=== PATIENT | female | born 1965 | race Caucasian/White ===

== ENCOUNTER 2018-10-22 13:03 | Inpatient (IN) ==
[~2018-10-22 13:03] MED LIST: amLODIPine 5 MG TABLET PO SCH
[2018-10-22] MEDS ORDERED: IOPAMIDOL 100 ML BOTTLE IV ONE (13:04)
--- NOTE | 2018-10-22 13:28 | Emergency Department Note ---
Nausea/Vomiting/Diarrhea HPI - General Chief complaint: Nausea/Vomiting/Diarrhea Stated complaint: nuasea, vomiting, altered mental status Time Seen by Provider: 10/22/18 13:13 Source: patient Mode of arrival: ambulatory Limitations: no limitations - History of Present Illness HPI Narrative: 53-year-old female in ED with friend present. Patient began having diarrhea and vomiting this morning along with decreased appetite over the last day. Friend advises patient had altered mental status last evening and patient advised she does not recall any of those events. Patient does work outside in the heat but she does drink adequate water. Patient provides vague answers and keeps it to yes and no answers or shrugs her shoulders. Patient advised that she has had no bladder changes, no chest pain, does have epigastric pain that is sharp and cramping, no headaches. She does smoke cigarettes daily and has since teenager, drinks alcohol rarely, does smoke marijuana daily. Sister advises patient did recently return from a kayak trip within the last week. MD complaint: nausea, vomiting, diarrhea, abdominal pain Onset (ago): hour(s) (12) Associated Abdominal Pain: Yes (epigastric) Location of pain: epigastric Consistency: constant Improves with: none Associated symptoms: Reports: loss of appetite, malaise, nausea/vomiting. Denies: myalgias, chest pain, cough, diaphoresis, fever/chills, headaches, rash, dysuria, shortness of breath, syncope, weakness - Related Data Home Medications Medication Instructions Recorded Confirmed Carisoprodol [Soma] 350 mg PO TIDP PRN 12/01/15 10/22/18 Gabapentin [Neurontin] 800 mg PO TID 12/01/15 10/22/18 morphine [Ms Contin] 60 mg PO BID 12/01/15 10/22/18 ALPRAZolam [Xanax] 0.5 mg PO DAILYP PRN 01/21/18 10/22/18 HYDROcodone/ACETAMINOPHEN [[place] 1 tab PO PRN PRN 10/22/18 10/22/18 10-325 Tablet] Previous Rx's Medication Instructions Recorded Albuterol Sulfate [Ventolin] 1 puff INH Q4HP PRN #1 inhaler 01/24/18 Levofloxacin [Levaquin] 750 mg PO DAILY #3 tab 01/24/18 predniSONE [Prednisone] 40 mg PO [facility] #10 tab 01/24/18 Allergies Allergy/AdvReac Type Severity Reaction Status Date / Time Penicillins Allergy Severe Anaphylaxis Verified 10/22/18 13:08 Sulfa (Sulfonamide AdvReac Mild Nausea/Vomi Verified 10/22/18 13:08 Antibiotics) ting Review of Systems All systems ED: reviewed and negative except as stated. Past Medical History - Past Medical History [facility] Narrative: All Active Problems (Last Reviewed 01/23/18 @ 03:49 by Shira Bermudez) Urinary tract infection (Acute) Pneumonia (Acute) COPD (chronic obstructive pulmonary disease) (Acute) Bilateral pneumonia (Acute) Medical history: Reports: COPD, other (back pain) Surgical history ED: Reports: appendectomy, hysterectomy - Social History smoking status: Current every day smoker Alcohol use: Reports: Occasionally Drug use: Reports: none Physical Exam Limitations: altered mental status General appearance: alert, in no apparent distress Head: atraumatic, normocephalic, normal inspection Eye: Present: normal appearance, PERRL, EOMI. Absent: conjunctival injection ENT: normal oropharynx, mucous membranes moist, TM's normal bilaterally, normal external ear exam Neck: Present: normal inspection, trachea midline. Absent: tenderness, lymphadenopathy Chest: Present: normal inspection, symmetric chest wall rise. Absent: tenderness Respiratory: Present: normal lung sounds bilaterally. Absent: respiratory distress, rales/crackles, wheezes Cardiovascular: Present: regular rate, normal rhythm. Absent: systolic murmur, diastolic murmur Abdominal: Present: soft, tenderness (mild diffuse), normal bowel sounds. Absent: distention, guarding, rebound, rigidity Extremities: Present: normal inspection, normal capillary refill. Absent: pedal edema Back: Present: normal inspection Neurological: Present: alert, normal gait. Absent: oriented X3 Patient oriented to: Present: person Cranial nerves: EOM function (II, III, IV, ): Normal, facial sensation (V): Normal, facial palsy (VII): Normal, gag reflex (IX): Normal, spinal accessory function (XI): Normal, tongue deviation (XII): Normal Cerebellar function: finger to nose: Normal Cerebellar function: normal gait Motor strength - LUE: 5/5 Motor strength - RUE: 5/5 Motor strength - LLE: 5/5 Motor strength - RLE: 5/5 Sensory exam upper extremity: Normal: light touch, pin prick, temperature Sensory exam lower extremity: Normal: light touch, pin prick, temperature Coma Scale Eye Opening: Spontaneous Coma Scale Motor Response: Obeys Commands Coma Scale Verbal Response: None (unknown if patient understands as she answers yes/no and the answers do not always correlate) Coma Scale Total: 11 Psychiatric: Present: normal affect, normal mood Skin: Present: warm, dry, intact, normal color. Absent: cool, diaphoretic Course Vital Signs Temperature 98.8 F 10/22/18 13:05 Pulse Rate 64 10/22/18 13:05 Respiratory Rate 17 10/22/18 13:05 Blood Pressure 182/103 10/22/18 13:05 Pulse Oximetry (%) 100 10/22/18 13:05 Temperature 99.5 F H 10/23/18 07:11 Pulse Rate 68 10/23/18 04:00 Respiratory Rate 20 10/23/18 07:11 Blood Pressure 156/86 10/23/18 07:11 Pulse Oximetry (%) 93 10/23/18 07:11 Nausea/Vomiting/Diarrhea - [facility] Narrative Medical decision making narrative: Patient presents with altered mental status and is only able to answer yes/no questions. She is also unable to write her answers. Sister advises she believes this started yesterday evening around dinner time, patient just was not acting per her normal. Pt follows commands, she is afebrile, her WBC returned 16.0, gran % 91.9 and gran # 14.7, lactic acid 2.9, BUN 25, urine unremarkable, UDS with marijuana positive. Head CT, CTA head/neck all Unremarkable. Patient with negative C-diff. Sister later advised patient has had episodes like this in the past- where she is unresponsive in her bed for days at a time and does not eat/drink, then awakes and laughs a lot but does not really talk. Sister attributed it to her drug use in the past and one time was diagnosed with a viral syndrome. consulted and advised to continue to find source of infection. Pt does not take prednisone-this was an old prescription. phoned and advised CT chest negative. CT abdomen without obstruction, lots of liquid stool, vasculitis, possible ischemic bowel could be source of infection, other differentials: parasites, lupus. Blood cultures and stool culture obtained. 1G Vancomycin started. Patient received 2 Liters Normal Saline. Consulted who advised to provide patient with hydralazine and attempts to decrease blood pressure, add Flagyl and cefepime to her antibiotic regimen and he accepted patient for further work-up. - Lab Data Lab results reviewed: Yes I reviewed the patient's lab results. Result diagrams: 10/23/18 04:08 10/23/18 04:08 Lab Results 10/22/18 10/22/18 10/22/18 Range/Units 13:33 13:33 13:33 WBC 16.0 H (4.5-11.0) K/mcL RBC 4.76 (4.00-5.20) M/mcL Hgb 15.6 H (12.0-15.0) g/dL Hct 48.1 H (36.0-48.0) % POC Hct 50.0 H (36.0-48.0) % MCV 101.1 H (80.0-100.0) fL MCH 32.7 (26.0-34.0) pg MCHC 32.3 (31.0-36.0) g/dL RDW 12.8 (11.5-14.5) % Plt Count 385 (140-440) K/mcL MPV 8.1 (7.4-10.4) fL Gran % 91.9 H (38.0-78.0) % Lymph % (Auto) 5.2 L (15.5-49.0) % [place] % (Auto) 2.4 (1.0-12.0) % Eos % (Auto) 0 (0.0-7.0) % Baso % (Auto) 0.5 (0.0-2.0) % Gran # 14.7 H (1.8-8.0) K/mcL Lymph # (Auto) 0.8 L (1.5-4.8) K/mcL [place] # (Auto) 0.4 (0.1-0.9) K/mcL Eos # (Auto) 0 (0.0-0.7) K/mcL Baso # (Auto) 0.1 (0.0-0.3) K/mcL VBG Lactic Acid (0.5-2.0) mmol/L POC Sodium 138 (133-145) mmol/L Sodium 136 (133-145) mmol/L POC Potassium 3.3 (3.3-5.1) mmol/L Potassium 3.4 (3.3-5.1) mmol/L POC Chloride 100 (96-108) mmol/L Chloride 96 (96-108) mmol/L Carbon Dioxide 23 (22-30) mmol/L POC Total CO2 24 (22-30) mmol/L Anion Gap 17.0 H (8-16) POC BUN 27 H (6-20) mg/dl BUN 25 H (6-20) mg/dl Creatinine 0.7 (0.6-1.1) mg/dl POC Creatinine 0.6 (0.6-1.1) mg/dl GFR Calculation 99 Glucose 150 H (70-105) mg/dL POC Glucose 152 H (70-105) mg/dL Calcium 9.9 (8.6-10.4) mg/dl POC WB Ioniz Calcium 1.13 L (1.16-1.32) mmol/L Magnesium 2.0 (1.6-2.5) mg/dL Total Bilirubin 0.6 (0.0-1.0) mg/dL AST 19 (0-37) U/l ALT 22 (0-40) U/l Alkaline Phosphatase 119 H (39-117) U/L Total Protein 8.1 (5.9-8.4) gm/dL Albumin 5.0 (3.2-5.2) gm/dL Globulin 3.1 (2.2-3.7) gm/dL Albumin/Globulin Ratio 1.6 (1.0-2.3) Vitamin B12 Folate Procalcitonin < 0.05 (<0.10) ng/mL Urine Color Urine Appearance Urine pH (5.0-9.0) Ur Specific [place] (1.003-1.030) Urine Protein (NEG) mg/dL Urine Glucose (UA) (NEG) mg/dL Urine Ketones (NEG) mg/dL Urine Occult Blood (<0.03) mg/dL Urine Nitrate (NEG) Urine Bilirubin (NEG) mg/dL Urine Urobilinogen (NEG) mg/dL Ur Leukocyte Esterase (NEG) /uL Urine RBC (0-1) /hpf Urine WBC (0-4) /hpf Ur Squamous Epith Cells (0-4) /hpf Urine Bacteria (0) /hpf Urine Mucus (0) /hpf Ur Culture Indicated? Urine Opiates Screen (NONDETECTED) Ur Opiates Confirm Ur Oxycodone Screen (NONDETECTED) Urine Methadone Screen (NONDETECTED) Ur Methadone Confirm Ur Barbiturates Screen (NONDETECTED) Ur Barbiturate Confirm Ur Phencyclidine Scrn (NONDETECTED) Urine PCP Confirm Ur Amphetamines Screen (NONDETECTED) U Amphetamines Confirm U Benzodiazepines Scrn (NONDETECTED) U Benzodiazepine Confm Urine Cocaine Screen (NONDETECTED) Urine Cocaine Confirm U Cannabinoids Confirm U Marijuana (THC) Screen (NONDETECTED) 10/22/18 10/22/18 10/22/18 Range/Units 14:40 14:40 14:50 WBC (4.5-11.0) K/mcL RBC (4.00-5.20) M/mcL Hgb (12.0-15.0) g/dL Hct (36.0-48.0) % POC Hct (36.0-48.0) % MCV (80.0-100.0) fL MCH (26.0-34.0) pg MCHC (31.0-36.0) g/dL RDW (11.5-14.5) % Plt Count (140-440) K/mcL MPV (7.4-10.4) fL Gran % (38.0-78.0) % Lymph % (Auto) (15.5-49.0) % [place] % (Auto) (1.0-12.0) % Eos % (Auto) (0.0-7.0) % Baso % (Auto) (0.0-2.0) % Gran # (1.8-8.0) K/mcL Lymph # (Auto) (1.5-4.8) K/mcL [place] # (Auto) (0.1-0.9) K/mcL Eos # (Auto) (0.0-0.7) K/mcL Baso # (Auto) (0.0-0.3) K/mcL VBG Lactic Acid 2.9 H (0.5-2.0) mmol/L POC Sodium (133-145) mmol/L Sodium (133-145) mmol/L POC Potassium (3.3-5.1) mmol/L Potassium (3.3-5.1) mmol/L POC Chloride (96-108) mmol/L Chloride (96-108) mmol/L Carbon Dioxide (22-30) mmol/L POC Total CO2 (22-30) mmol/L Anion Gap (8-16) POC BUN (6-20) mg/dl BUN (6-20) mg/dl Creatinine (0.6-1.1) mg/dl POC Creatinine (0.6-1.1) mg/dl GFR Calculation Glucose (70-105) mg/dL POC Glucose (70-105) mg/dL Calcium (8.6-10.4) mg/dl POC WB Ioniz Calcium (1.16-1.32) mmol/L Magnesium (1.6-2.5) mg/dL Total Bilirubin (0.0-1.0) mg/dL AST (0-37) U/l ALT (0-40) U/l Alkaline Phosphatase (39-117) U/L Total Protein (5.9-8.4) gm/dL Albumin (3.2-5.2) gm/dL Globulin (2.2-3.7) gm/dL Albumin/Globulin Ratio (1.0-2.3) Vitamin B12 TNP Folate TNP Procalcitonin (<0.10) ng/mL Urine Color Urine Appearance Urine pH (5.0-9.0) Ur Specific [place] (1.003-1.030) Urine Protein (NEG) mg/dL Urine Glucose (UA) (NEG) mg/dL Urine Ketones (NEG) mg/dL Urine Occult Blood (<0.03) mg/dL Urine Nitrate (NEG) Urine Bilirubin (NEG) mg/dL Urine Urobilinogen (NEG) mg/dL Ur Leukocyte Esterase (NEG) /uL Urine RBC (0-1) /hpf Urine WBC (0-4) /hpf Ur Squamous Epith Cells (0-4) /hpf Urine Bacteria (0) /hpf Urine Mucus (0) /hpf Ur Culture Indicated? Urine Opiates Screen (NONDETECTED) Ur Opiates Confirm Ur Oxycodone Screen (NONDETECTED) Urine Methadone Screen (NONDETECTED) Ur Methadone Confirm Ur Barbiturates Screen (NONDETECTED) Ur Barbiturate Confirm Ur Phencyclidine Scrn (NONDETECTED) Urine PCP Confirm Ur Amphetamines Screen (NONDETECTED) U Amphetamines Confirm U Benzodiazepines Scrn (NONDETECTED) U Benzodiazepine Confm Urine Cocaine Screen (NONDETECTED) Urine Cocaine Confirm U Cannabinoids Confirm U Marijuana (THC) Screen (NONDETECTED) 10/22/18 10/22/18 Range/Units 15:20 15:20 WBC (4.5-11.0) K/mcL RBC (4.00-5.20) M/mcL Hgb (12.0-15.0) g/dL Hct (36.0-48.0) % POC Hct (36.0-48.0) % MCV (80.0-100.0) fL MCH (26.0-34.0) pg MCHC (31.0-36.0) g/dL RDW (11.5-14.5) % Plt Count (140-440) K/mcL MPV (7.4-10.4) fL Gran % (38.0-78.0) % Lymph % (Auto) (15.5-49.0) % [place] % (Auto) (1.0-12.0) % Eos % (Auto) (0.0-7.0) % Baso % (Auto) (0.0-2.0) % Gran # (1.8-8.0) K/mcL Lymph # (Auto) (1.5-4.8) K/mcL [place] # (Auto) (0.1-0.9) K/mcL Eos # (Auto) (0.0-0.7) K/mcL Baso # (Auto) (0.0-0.3) K/mcL VBG Lactic Acid (0.5-2.0) mmol/L POC Sodium (133-145) mmol/L Sodium (133-145) mmol/L POC Potassium (3.3-5.1) mmol/L Potassium (3.3-5.1) mmol/L POC Chloride (96-108) mmol/L Chloride (96-108) mmol/L Carbon Dioxide (22-30) mmol/L POC Total CO2 (22-30) mmol/L Anion Gap (8-16) POC BUN (6-20) mg/dl BUN (6-20) mg/dl Creatinine (0.6-1.1) mg/dl POC Creatinine (0.6-1.1) mg/dl GFR Calculation Glucose (70-105) mg/dL POC Glucose (70-105) mg/dL Calcium (8.6-10.4) mg/dl POC WB Ioniz Calcium (1.16-1.32) mmol/L Magnesium (1.6-2.5) mg/dL Total Bilirubin (0.0-1.0) mg/dL AST (0-37) U/l ALT (0-40) U/l Alkaline Phosphatase (39-117) U/L Total Protein (5.9-8.4) gm/dL Albumin (3.2-5.2) gm/dL Globulin (2.2-3.7) gm/dL Albumin/Globulin Ratio (1.0-2.3) Vitamin B12 Folate Procalcitonin (<0.10) ng/mL Urine Color Straw Urine Appearance Clear Urine pH 6.0 (5.0-9.0) Ur Specific [place] 1.010 (1.003-1.030) Urine Protein Neg (NEG) mg/dL Urine Glucose (UA) Negative (NEG) mg/dL Urine Ketones Neg (NEG) mg/dL Urine Occult Blood 0.2 A (<0.03) mg/dL Urine Nitrate Neg (NEG) Urine Bilirubin Neg (NEG) mg/dL Urine Urobilinogen Neg (NEG) mg/dL Ur Leukocyte Esterase Neg (NEG) /uL Urine RBC 9 H (0-1) /hpf Urine WBC 4 (0-4) /hpf Ur Squamous Epith Cells 0 (0-4) /hpf Urine Bacteria 0 (0) /hpf Urine Mucus Few (0) /hpf Ur Culture Indicated? No Urine Opiates Screen None detected (NONDETECTED) Ur Opiates Confirm Not Reportable Ur Oxycodone Screen None detected (NONDETECTED) Urine Methadone Screen None detected (NONDETECTED) Ur Methadone Confirm Not Reportable Ur Barbiturates Screen None detected (NONDETECTED) Ur Barbiturate Confirm Not Reportable Ur Phencyclidine Scrn None detected (NONDETECTED) Urine PCP Confirm Not Reportable Ur Amphetamines Screen None detected (NONDETECTED) U Amphetamines Confirm Not Reportable U Benzodiazepines Scrn None detected (NONDETECTED) U Benzodiazepine Confm Not Reportable Urine Cocaine Screen None detected (NONDETECTED) Urine Cocaine Confirm Not Reportable U Cannabinoids Confirm Not Reportable U Marijuana (THC) Screen Suspect positive A (NONDETECTED) - Radiology Data Radiology results reviewed: Yes I reviewed the patient's radiology results. Date of Service: 10/22/18 Procedure(s): CT head/brain wo con Accession Number(s): [id number] History: Increased confusion with nausea and vomiting TECHNIQUE: The brain was imaged without contrast at 2.5 mm intervals. Radiation exposure was limited using dose reduction technology. FINDINGS: The brain appears normal without evidence of infarct, mass effect, hemorrhage, edema or developmental anomaly. There is subtle atrophy in the frontal lobes and around the sylvian fissures. The ventricles are normal in size. There is no abnormal extra-axial fluid collection. Several calcified plaques are present in the cavernous portions of both internal carotids. Visualized sinuses are clear. The bone windows show no skull lesion. IMPRESSION: No acute abnormality Interpreted and Authenticated by: Wing Cantu 10/22/18 Date of Service: 10/22/18 Procedure(s): CT angio head Accession Number(s): [id number] History: Stroke symptoms with altered mental status TECHNIQUE: Following injection of intravenous nonionic contrast, arterial phase images were acquired from the aortic arch to the top of the head. Sagittal coronal and 3-D volume rendered images were obtained. The radiation exposure was limited using dose reduction technology. FINDINGS: Head: There is mild plaque formation in the cavernous portions of the internal carotids. This is not causing stenosis. The supraclinoid internal carotids are normal. The anterior and middle cerebral arteries are normal. There are patent bilateral posterior communicating arteries and a patent anterior communicating artery. The left vertebral artery is dominant. 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 This is a developmental variant. The basilar artery and posterior fossa circulation are normal. There is no intracranial stenosis, thrombosis, aneurysm or vascular malformation. No enhancing lesion is seen. NECK: There is mild plaque formation in the carotid bifurcations bilaterally. These are not causing stenosis. There there is no dissection of the carotids. The vertebral arteries are asymmetric. The right is dominant. There is no plaque formation or dissection in either vertebral artery. Aortic arch is [id number] with minimal plaque formation at the origins of the innominate and left common carotid. There is no evidence of neck mass or lymphadenopathy. 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 Patient has mild degenerative disc disease and arthritis at C3-4 C4-5 and C5-6. IMPRESSION: Mild atherosclerotic disease in the carotid bifurcations bilaterally and in the cavernous portions of both internal carotids. No evidence of vascular stenosis or thrombosis within the head or neck. Fidelia Ramirez was called with results Interpreted and Authenticated by: Wing Cantu 10/22/18 Date of Service: 10/22/18 Procedure(s): CT chest abdomen pelvis wo [facility] Accession Number(s): [id number] History: Abdominal pain, nausea and vomiting, elevated white cell count and altered mental status TECHNIQUE: The patient was imaged following oral and intravenous contrast scanning during the excretory phase from the thoracic inlet to the symphysis pubis. Sagittal and coronal reformats are created along with axial MIPS images of the chest. The radiation exposure was limited using dose reduction technology. FINDINGS: CHEST: The lungs are clear, without evidence of pneumonia or mass. There is no pleural effusion or adenopathy. The airways appear normal. The heart is normal in size and contour. There are few calcified plaques in the proximal left anterior descending coronary artery. The aorta is normal caliber and has minimal plaque formation. Abdomen and pelvis: The liver and spleen are normal in size and homogeneous. The gallbladder is relatively small but there are no stones within the lumen of the bile ducts are nondilated. There is no mass or inflammation the pancreas. The adrenals and kidneys are normal. Oral contrast has passed through stomach and small intestine to the transverse colon without obstruction. There is circumferential thickening of the wall throughout the entire ileum. This also involves the distal jejunum. It does not extend into the colon. There is no inflammation of the surrounding fat. No ascites, adenopathy or abscess are present within the abdomen or pelvis. There is a large amount liquefied stool in the colon. There is no evidence of colitis or diverticulitis. Urinary bladder is distended with contrast and appears normal. Patient has had a prior hysterectomy performed. The abdominal aorta is normal in caliber. There are scattered plaques along the distal wall. There is no plaque formation in the celiac, superior mesenteric or inferior mesenteric arteries. Since images were acquired during the excretory phase, the lumen of the arteries cannot be evaluated for possible thrombus. There are postoperative changes following prior laminectomy and fusion at L5-S1. The L4-5 disc space is moderate to severely narrowed and degenerated. IMPRESSION: Diffuse thickening of the wall of the distal small intestine. This is a nonspecific finding which may be due to ischemia. With a relative lack of calcified plaque in the chest abdomen or pelvis, atherosclerosis causing ischemia would be less likely than vasculitis caused by collagen vascular disease such as lupus. Other considerations would include infection with bacteria, virus or parasite. Crohn's disease is also possible. However, the long contiguous involvement without skip lesions would be atypical. Normal chest and upper abdomen Fidelia Hyman was called with the results Interpreted and Authenticated by: Wing Cantu 10/23/18 Disposition Pt seen by MANAGER BEAUTY/PA only: Yes Clinical Impression: Sepsis Qualifiers: Sepsis type: sepsis due to unspecified organism Qualified Code(s): A41.9 - Sepsis, unspecified organism Altered mental status Qualifiers: Altered mental status type: disorientation Qualified Code(s): R41.0 - Dis orientation, unspecified Disposition: Xfer As Inpt ([facility]) Condition: Good Time of Disposition: 10:08
[2018-10-22] MEDS ORDERED: 0.9 % SODIUM CHLORIDE 1,000 ML IV ONE ×2 (13:39→14:29)
[2018-10-22 13:46] LABS: POC Blood Urea Nitrogen 27 mg/dl (6-20); POC CO2 24 mmol/L (22-30); POC Calcium, Ionized 1.13 mmol/L (1.16-1.32); POC Chloride 100 mmol/L (96-108); POC Creatinine 0.6 mg/dl (0.6-1.1); POC Glucose, Random 152 mg/dL (70-105); POC Potassium 3.3 mmol/L (3.3-5.1); POC Sodium 138 mmol/L (133-145)
[2018-10-22 14:05] LABS: Basophils # (Auto) 0.1 K/mcL (0.0-0.3); Basophils % (Auto) 0.5 % (0.0-2.0); Eosinophils # (Auto) 0 K/mcL (0.0-0.7); Eosinophils % (Auto) 0 % (0.0-7.0); Granulocytes % (Auto) 91.9 % (38.0-78.0); Hematocrit 48.1 % (36.0-48.0); Hemoglobin 15.6 g/dL (12.0-15.0); Lymphocytes # (Auto) 0.8 K/mcL (1.5-4.8); Lymphocytes % (Auto) 5.2 % (15.5-49.0); Mean Cell Volume 101.1 fL (80.0-100.0); Mean Corpuscular HGB Conc 32.3 g/dL (31.0-36.0); Mean Platelet Volume 8.1 fL (7.4-10.4); Monocytes # (Auto) 0.4 K/mcL (0.1-0.9); Monocytes % (Auto) 2.4 % (1.0-12.0); Platelet Count 385 K/mcL (140-440); RBC 4.76 M/mcL (4.00-5.20); Red Cell Distribution Width 12.8 % (11.5-14.5)
[2018-10-22 14:29] LABS: ALT/SGPT 22 U/l (0-40); AST/SGOT 19 U/l (0-37); Albumin/Globulin Ratio 1.6 (1.0-2.3); Alkaline Phosphatase 119 U/L (39-117); Bilirubin,Total 0.6 mg/dL (0.0-1.0); Blood Urea Nitrogen 25 mg/dl (6-20); Calcium 9.9 mg/dl (8.6-10.4); Carbon Dioxide 23 mmol/L (22-30); Chloride 96 mmol/L (96-108); Globulin 3.1 gm/dL (2.2-3.7); Glomerular Filtration Rate 99; Glucose 150 mg/dL (70-105)
--- NOTE | 2018-10-22 15:07 | Cat Scan Report ---
History: Increased confusion with nausea and vomiting TECHNIQUE: The brain was imaged without contrast at 2.5 mm intervals. Radiation exposure was limited using dose reduction technology. FINDINGS: The brain appears normal without evidence of infarct, mass effect, hemorrhage, edema or developmental anomaly. There is subtle atrophy in the frontal lobes and around the sylvian fissures. The ventricles are normal in size. There is no abnormal extra-axial fluid collection. Several calcified plaques are present in the cavernous portions of both internal carotids. Visualized sinuses are clear. The bone windows show no skull lesion. IMPRESSION: No acute abnormality Interpreted and Authenticated by: Wing Cantu 10/22/18
--- NOTE | 2018-10-22 15:31 | Cat Scan Report ---
History: Stroke symptoms with altered mental status TECHNIQUE: Following injection of intravenous nonionic contrast, arterial phase images were acquired from the aortic arch to the top of the head. Sagittal coronal and 3-D volume rendered images were obtained. The radiation exposure was limited using dose reduction technology. FINDINGS: Head: There is mild plaque formation in the cavernous portions of the internal carotids. This is not causing stenosis. The supraclinoid internal carotids are normal. The anterior and middle cerebral arteries are normal. There are patent bilateral posterior communicating arteries and a patent anterior communicating artery. The left vertebral artery is dominant. 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 This is a developmental variant. The basilar artery and posterior fossa circulation are normal. There is no intracranial stenosis, thrombosis, aneurysm or vascular malformation. No enhancing lesion is seen. NECK: There is mild plaque formation in the carotid bifurcations bilaterally. These are not causing stenosis. There there is no dissection of the carotids. The vertebral arteries are asymmetric. The right is dominant. There is no plaque formation or dissection in either vertebral artery. Aortic arch is [id number] with minimal plaque formation at the origins of the innominate and left common carotid. There is no evidence of neck mass or lymphadenopathy. 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 Patient has mild degenerative disc disease and arthritis at C3-4 C4-5 and C5-6. IMPRESSION: Mild atherosclerotic disease in the carotid bifurcations bilaterally and in the cavernous portions of both internal carotids. No evidence of vascular stenosis or thrombosis within the head or neck. Fidelia Ramirez was called with results Interpreted and Authenticated by: Wing Cantu 10/23/18
[2018-10-22 16:06] LABS: Amphetamine Screen,Urine NONE DETECTED (NONDETECTED); Barbiturate Screen,Urine NONE DETECTED (NONDETECTED); Benzodiazepines Screen,Urine NONE DETECTED (NONDETECTED); Cannabinoid Screen,Urine SUSPECT POSITIVE (NONDETECTED); Cocaine Screen,Urine NONE DETECTED (NONDETECTED); Opiate Screen,Urine NONE DETECTED (NONDETECTED); Oxycodone, Urine Screen NONE DETECTED (NONDETECTED); Phencyclidine Screen,Urine NONE DETECTED (NONDETECTED)
[2018-10-22 16:07] LABS: Appearance,Urine CLEAR; Bacteria,Urine 0 /hpf (0); Bilirubin,Urine NEG (NEG); Color,Urine STRAW; Culture Indicated,Urine NO; Glucose,Urine (UA) NEGATIVE (NEG); Ketones,Urine NEG (NEG); Leukocyte Esterase,Urine NEG /uL (NEG); Mucus,Urine FEW /hpf (0); Nitrate,Urine NEG (NEG); Protein,Urine NEG (NEG); Urine Blood 0.2 mg/dL (<0.03); Urine RBC 9 /hpf (0-1); Urine Squamous Epithelial Cell 0 /hpf (0-4); Urine WBC 4 /hpf (0-4); Urobilinogen,Urine NEG (NEG)
--- NOTE | 2018-10-22 16:44 | XRay Report ---
HISTORY: Sepsis FINDINGS: The lungs are clear. The heart, mediastinum, love and pleura are normal. IMPRESSION: Normal chest. Interpreted and Authenticated by: Wing Cantu 10/22/18
[2018-10-22] MEDS ORDERED: VANCOMYCIN 1,000 MG in 0.9 % SODIUM CHLORIDE 250 ML IV ONE (19:17)
[2018-10-22] MEDS ORDERED: metroNIDAZOLE 500 MG/100 ML BAG IV ONE (20:43)
[2018-10-22] MEDS ORDERED: CEFEPIME 1 GM VIAL IV ONE ×3 (20:43→21:40)
[2018-10-22] MEDS ORDERED: hydrALAZINE 20 MG/ML VIAL IV ONE (20:43)
--- NOTE | 2018-10-22 21:26 | Internal Med History&Physical ---
Medical - H&P: HPI Patient information: Note initiated : 10/22/18 at 9:21 pm Service Date, if different from initiated Date: [] Patient: Karina Duarte a 53 y/o F admitted on for N/V, Altered Mental Status. Chief Complaint: [] History of present illness: Ms. Duarte is a 53 year old F presents with abdominal pain right upper quadrant dull pain nonradiating. She had developed nausea vomiting this morning of oral range and green emesis. She had diarrhea today per staff in ED had a greenish hue to it. Patient had no bowel months the previous 2 days and prior to that she did have diarrhea as well. Patient also with some confusion per family. She recently went on a camping trip to [place] go back a week ago and a few days ago she was kayaking on [place] above episode. In the ED she was seen and evaluated had a leukocytosis and hemoconcentration. She appeared volume depleted. Lactate was elevated 2.9. C. difficile study was negative. Because of her altered state she had CTA head and neck which were unremarkable. CT chest of pelvis looking for source of infection. Which showed lots of liquid stool and concern for infection. No neck pain. She is able answers some questions well and other questions she would laugh and not be able to answer. Speaking with family she said episodes in the past probably 3 to 4-year where she becomes quite altered. Her sister says she will work herself up and exerts herself and concerned that her medications are compounding issue. During these episodes patient will be altered for several days, very sleepy lethargic week and very confused -much worse than she is at this time. After couple days of rest she will come out it and be fine. She has had no fevers. No chest pain coughing shortness of breath, no coryza. Also of note, her did have diarrhea a few days ago as well. 2 L NS given in the ED. Review of Systems: Pertinent positives as above. Denies headache/fever/chills/chest pain/cough/dyspnea. Remaining 10 point review of system reviewed negative Medical - H&P: PMH Medical history: Medical History (Last Reviewed 10/22/18 @ 20:14 by Anni Menendez) Fibromyalgia Neuropathy Anxiety Chronic low back pain from trauma Tobacco abuse Past surgical history: Hysterectomy Appendectomy Family history: Mother and father both healthy Social she: Patient smokes half pack cigarettes per day, denies alcohol use, denies drug use, lives with family Medical - H&P: Meds Home Medications Medication Instructions Recorded Confirmed Type Carisoprodol [Soma] 350 mg PO TIDP PRN 12/01/15 10/22/18 History Gabapentin [Neurontin] 800 mg PO TID 12/01/15 10/22/18 History morphine [Ms Contin] 60 mg PO BID 12/01/15 10/22/18 History ALPRAZolam [Xanax] 0.5 mg PO DAILYP PRN 01/21/18 10/22/18 History Albuterol Sulfate [Ventolin] 1 puff INH Q4HP PRN #1 inhaler 01/24/18 10/22/18 Rx Levofloxacin [Levaquin] 750 mg PO DAILY #3 tab 01/24/18 Rx predniSONE [Prednisone] 40 mg PO QAMCC #10 tab 01/24/18 10/22/18 Rx HYDROcodone/ACETAMINOPHEN [[place] 1 tab PO PRN PRN 10/22/18 10/22/18 History 10-325 Tablet] Allergies Allergy/AdvReac Type Severity Reaction Status Date / Time Penicillins Allergy Severe Anaphylaxis Verified 10/22/18 13:08 Sulfa (Sulfonamide AdvReac Mild Nausea/Vomi Verified 10/22/18 13:08 Antibiotics) ting Medical - H&P: Exam - Constitutional Vitals: Temp Pulse Resp BP Pulse Ox 98.7 F 82 25 H 182/95 100 10/22/18 15:18 10/22/18 20:46 10/22/18 20:46 10/22/18 19:16 10/22/18 20:46 Exam: General: Alert, Awake, No acute Distress Eyes/N/T: EOMI, PEERL, Head/Neck: neck supple - no nuchal rigidity, normocephalic atraumatic CV: RRR, No murmurs, normal s1/s2 Pulm: Clear b/l, no wheezing/rhonchi/rales Abd: soft, nontender, +BS x4 Ext: no clubbing/cyanosis/edema Neuro: Alert, Oriented to Time/Person (not President or Year), moves all extremities, follows commands CN 2-12 grossly intact, symmetrical strength b/l upper/lower, sensations intact b/l upper/lower Skin: warm/dry Medical - H&P: Reslt - Labs CBC & Chem 7: 10/22/18 13:33 10/22/18 13:33 Labs: Short CBC 10/22/18 Range/Units 13:33 WBC 16.0 H (4.5-11.0) K/mcL Hgb 15.6 H (12.0-15.0) g/dL Hct 48.1 H (36.0-48.0) % Plt Count 385 (140-440) K/mcL BMP 10/22/18 13:33 Sodium 136 Potassium 3.4 Chloride 96 Carbon Dioxide 23 BUN 25 H Creatinine 0.7 Glucose 150 H Calcium 9.9 Liver Function 10/22/18 Range/Units 13:33 Total Bilirubin 0.6 (0.0-1.0) mg/dL AST 19 (0-37) U/l ALT 22 (0-40) U/l Alkaline Phosphatase 119 H (39-117) U/L Albumin 5.0 (3.2-5.2) gm/dL Urine 10/22/18 Range/Units 15:20 Urine Color Straw Urine Appearance Clear Urine pH 6.0 (5.0-9.0) Ur Specific [place] 1.010 (1.003-1.030) Urine Protein Neg (NEG) mg/dL Urine Glucose (UA) Negative (NEG) mg/dL - Impressions CT a of neck and head unremarkable CT abdomen pelvis per the ER staff showed significant liquid stool, but no other significant abnormalities. I do not have the official report yet. Medical - H&P: A/P - Narrative A/P Narrative: A: *Gastroenteritis: water vs food source -c. diff neg -CT abdomen pelvis with *Sepsis: 2/2 above *AMS: 2/2 above -CT head/neck remarkable *Volume depletion: *Hypertensive urgency: Does not take blood pressure medications at home and does not check blood pressure *Chronic low back pain/fibromyalgia: On Soma/gabapentin/[place]/morphine sulfate *Neuropathy: *Tobacco abuse: * P: -IVF -pending O&P/stool cx -pending BC -f/u lactate -hold home morphine, reduce phylicia -cont cefepime/Flagyl for now -prn BP med, start norvasc -PCP records - -Smoking cessation counseling -ppx: [facility]
[2018-10-22] MEDS ORDERED: cloNIDine HCL 0.1 MG TABLET PO PRN (21:32)
[2018-10-22] MEDS ORDERED: hydrALAZINE 20 MG/ML VIAL IV PRN ×2 (21:34→21:40)
[2018-10-22] MEDS ORDERED: CARISOPRODOL 350 MG TABLET PO PRN (21:40)
[2018-10-22] MEDS ORDERED: 0.9 % SODIUM CHLORIDE 500 ML IV SCH (21:40)
[2018-10-22] MEDS ORDERED: ONDANSETRON 4 MG/2 ML VIAL IV PRN (21:40)
[2018-10-22] MEDS ORDERED: ALPRAZolam 0.5 MG TABLET PO PRN (21:40)
[2018-10-22] MEDS ORDERED: ALBUTEROL SULFATE 1 PUFF INHALER INH PRN (21:40)
[2018-10-22] MEDS ORDERED: PROMETHAZINE 25 MG TABLET PO PRN (21:40)
[2018-10-22] MEDS: 0.9 % SODIUM CHLORIDE 10 ML SYRINGE IV SCH (22:00)
[2018-10-22] MEDS: ACETAMINOPHEN 325 MG TABLET PO PRN (23:25)
[2018-10-23] MEDS: 0.9 % SODIUM CHLORIDE 10 ML SYRINGE IV SCH ×3 (06:11→21:28)
--- NOTE | 2018-10-23 07:03 | Internal Med Progress Note ---
Medical - PN: Subj Patient information: Note initiated : 10/23/18 at 6:59 am Service Date, if different from initiated Date: [] Patient: Karina Duarte 53 y/o F admitted on 10/22/18 for N/V, Altered Mental Status. Chief Complaint: [] Interval history: Ms. Duarte is a 53 year old F presents with abdominal pain right upper quadrant dull pain nonradiating. She had developed nausea vomiting this morning of oral range and green emesis. She had diarrhea today per staff in ED had a greenish hue to it. Patient had no bowel months the previous 2 days and prior to that she did have diarrhea as well. Patient also with some confusion per family. She recently went on a camping trip to [place] go back a week ago and a few days ago she was [place] episode. In the ED she was seen and evaluated had a leukocytosis and hemoconcentration. She appeared volume depleted. Lactate was elevated 2.9. C. difficile study was negative. Because of her altered state she had CTA head and neck which were unremarkable. CT chest of pelvis looking for source of infection. Which showed lots of liquid stool and concern for infection. No neck pain. She is able answers some questions well and other questions she would laugh and not be able to answer. Speaking with family she said episodes in the past probably 3 to 4-year where she becomes quite altered. Her sister says she will work herself up and exerts herself and concerned that her medications are compounding issue. During these episodes patient will be altered for several days, very sleepy lethargic week and very confused -much worse than she is at this time. After couple days of rest she will come out it and be fine. She has had no fevers. No chest pain coughing shortness of breath, no coryza. Also of note, her did have diarrhea a few days ago as well. 2 L NS given in the ED. 10/23 No overnight events other than a watery/greenish stool last night x1. Overall feeling better. No nausea vomiting. No fever chills. Review of Systems: denies headache/fever/chills/nausea/vomiting/chest or abdominal pain/cough/dyspnea. Otherwise see above. - Constitutional Vitals: Vital Signs Temp Pulse Resp BP Pulse Ox 99.1 F H 68 16 156/89 99 07/26/19 04:00 10/23/18 04:00 10/23/18 04:00 10/23/18 04:00 10/23/18 04:00 Period Temp Pulse Resp BP Sys/Arias Pulse Ox Last 24 Hr 98 F-100.8 F 58-95 12-34 154-189/80-114 99-100 Intake and Output 10/22/18 10/23/18 10/23/18 21:59 05:59 13:59 Intake Total 2250 700 Output Total 700 Balance 2250 0 Weight 49.668 kg Intake & Output: Intake & Output 10/22/18 10/23/18 10/23/18 21:59 05:59 13:59 Intake Total 2250 700 Output Total 700 Balance 2250 0 Weight 49.668 kg Intake: IV 2250 600 Sodium Chloride 0.9% 500 ml @ 2000 500 75 mls/hr IV .Q6H40M [facility] Rx#: [id number] Vancomycin 1,000 mg In Sodium 250 Chloride 0.9% 250 ml @ 250 mls/ hr IV ONCE ONE Rx#:[id number] Oral 100 Output: Urine/Stool Mix 700 Other: Urine Appearance Straight Clear Urine Color Straight Straw Stool Size Moderate Moderate Stool Color Green Green Stool Consistency Watery Watery Loose Loose Exam: General: Alert, Awake, No acute Distress Eyes/N/T: EOMI, PEERL, Head/Neck: neck supple - no nuchal rigidity, normocephalic atraumatic CV: RRR, No murmurs, Pulm: Clear b/l, no wheezing/rhonchi/rales Abd: soft, nontender, +BS x4 Ext: no clubbing/cyanosis/edema Neuro: Alert, Oriented to Time/Person/President (not Year) - improving, moves all extremities, follows commands Skin: warm/dry - Head Additional comments: General: Alert, Awake, No acute Distress Eyes/N/T: EOMI, Head/Neck: neck supple - no nuchal rigidity, normocephalic atraumatic CV: RRR, No murmurs, Pulm: Clear b/l, no wheezing/rhonchi/rales Abd: soft, nontender, +BS x4 Ext: no clubbing/cyanosis/edema Neuro: Alert, Oriented to Time/Person (not President or Year), moves all extremities, follows commands Skin: warm/dry Medical - PN: Obj Da - Labs CBC & Chem 7: 10/23/18 04:08 10/22/18 13:33 Labs: Abnormal Lab Results 10/22/18 10/22/18 10/22/18 21:50 15:20 15:20 WBC Hgb Hct POC Hct MCV Gran % Lymph % (Auto) Gran # Lymph # (Auto) VBG Lactic Acid 2.7 H Anion Gap POC BUN BUN Glucose POC Glucose POC WB Ioniz Calcium Alkaline Phosphatase Urine Occult Blood 0.2 A Urine RBC 9 H U Marijuana (THC) Screen Suspect positive A 10/22/18 10/22/18 10/22/18 14:50 13:33 13:33 WBC 16.0 H Hgb 15.6 H Hct 48.1 H POC Hct 50.0 H MCV 101.1 H Gran % 91.9 H Lymph % (Auto) 5.2 L Gran # 14.7 H Lymph # (Auto) 0.8 L VBG Lactic Acid 2.9 H Anion Gap 17.0 H POC BUN 27 H BUN 25 H Glucose 150 H POC Glucose 152 H POC WB Ioniz Calcium 1.13 L Alkaline Phosphatase 119 H Urine Occult Blood Urine RBC U Marijuana (THC) Screen Meds: Medications Acetaminophen (Tylenol) 650 mg PO Q6HP PRN PRN Reason: PAIN/FEVER > 101 Last Admin: 10/22/18 23:25 Dose: 650 mg Documented by: Hydrocodone Bitart/Acetaminophen ([place] 10/325mg) 1 tab PO PRN PRN PRN Reason: Pain Albuterol Sulfate (Ventolin) 1 puff INH Q4HP PRN PRN Reason: Shortness Of Breath Or Wheezing Alprazolam (Xanax) 0.5 mg PO DAILYP PRN PRN Reason: Anxiety Amlodipine Besylate (Norvasc) 5 mg PO DAILY [facility] Carisoprodol (Soma) 350 mg PO TIDP PRN PRN Reason: Pain Cefepime HCl (Maxipime) 2 gm IV Q12H [facility]; Protocol Clonidine HCl (Catapres) 0.1 mg PO Q6HP PRN PRN Reason: Hypertension SBP>150 Famotidine (Pepcid) 20 mg IV Q12 [facility] Gabapentin (Neurontin) 200 mg PO TID [facility] Hydralazine HCl (Apresoline) 0 mg IV Q2HP PRN PRN Reason: Hypertension Metronidazole (Flagyl) 500 mg in 100 mls @ 100 mls/hr IV Q8H [facility]; Protocol Ondansetron HCl (Zofran) 4 mg IV Q6HP PRN PRN Reason: Nausea And Vomiting Promethazine HCl (Phenergan) 12.5 mg PO Q6HP PRN PRN Reason: Nausea And Vomiting Sodium Chloride (Saline Flush) 10 ml IV Q8 [facility] Last Admin: 10/23/18 06:11 Dose: Not Given Documented by: Medical - PN: A/P - Time Spent With Patient Total time spent is greater than 50% in coordination of care (as documented) at patient's floor/unit and/or counseling patient: - Narrative A/P Narrative: A: *Gastroenteritis: water vs food source -c. diff neg -CT abdomen pelvis with thickening of the wall of the distal small intestine, no noted atherosclerosis, suspect infection *Sepsis: 2/2 above -febrile o/n, leukocytosis improving - *AMS: 2/2 above. Improving -CT head/neck remarkable *Volume depletion: *Hypertensive urgency: Does not take blood pressure medications at home and does not check blood pressure *Hypokalemia: *Chronic low back pain/fibromyalgia: On Soma/gabapentin/[place]/morphine sulfate *Neuropathy: *Tobacco abuse: * P: -IVF -pending O&P/stool cx -pending BC -f/u lactate -hold home morphine, reduce phylicia -cont cefepime/Flagyl for now -prn BP med, start norvasc -PCP records - -Smoking cessation counseling -ppx: [facility] Medical - PN: Qual - VTE Deep Vein Thrombosis/Pulmonary Embolism Present on Admission: No
[2018-10-23 07:27] LABS: Hematocrit 45.1 % (36.0-48.0); Hemoglobin 14.5 g/dL (12.0-15.0); Mean Cell Volume 102.1 fL (80.0-100.0); Mean Corpuscular HGB Conc 32.2 g/dL (31.0-36.0); Mean Platelet Volume 8.3 fL (7.4-10.4); Platelet Count 348 K/mcL (140-440); RBC 4.42 M/mcL (4.00-5.20); Red Cell Distribution Width 12.6 % (11.5-14.5); WBC 11.3 K/mcL (4.5-11.0)
--- NOTE | 2018-10-23 08:06 | Cat Scan Report ---
History: Abdominal pain, nausea and vomiting, elevated white cell count and altered mental status TECHNIQUE: The patient was imaged following oral and intravenous contrast scanning during the excretory phase from the thoracic inlet to the symphysis pubis. Sagittal and coronal reformats are created along with axial MIPS images of the chest. The radiation exposure was limited using dose reduction technology. FINDINGS: CHEST: The lungs are clear, without evidence of pneumonia or mass. There is no pleural effusion or adenopathy. The airways appear normal. The heart is normal in size and contour. There are few calcified plaques in the proximal left anterior descending coronary artery. The aorta is normal caliber and has minimal plaque formation. Abdomen and pelvis: The liver and spleen are normal in size and homogeneous. The gallbladder is relatively small but there are no stones within the lumen of the bile ducts are nondilated. There is no mass or inflammation the pancreas. The adrenals and kidneys are normal. Oral contrast has passed through stomach and small intestine to the transverse colon without obstruction. There is circumferential thickening of the wall throughout the entire ileum. This also involves the distal jejunum. It does not extend into the colon. There is no inflammation of the surrounding fat. No ascites, adenopathy or abscess are present within the abdomen or pelvis. There is a large amount liquefied stool in the colon. There is no evidence of colitis or diverticulitis. Urinary bladder is distended with contrast and appears normal. Patient has had a prior hysterectomy performed. The abdominal aorta is normal in caliber. There are scattered plaques along the distal wall. There is no plaque formation in the celiac, superior mesenteric or inferior mesenteric arteries. Since images were acquired during the excretory phase, the lumen of the arteries cannot be evaluated for possible thrombus. There are postoperative changes following prior laminectomy and fusion at L5-S1. The L4-5 disc space is moderate to severely narrowed and degenerated. IMPRESSION: Diffuse thickening of the wall of the distal small intestine. This is a nonspecific finding which may be due to ischemia. With a relative lack of calcified plaque in the chest abdomen or pelvis, atherosclerosis causing ischemia would be less likely than vasculitis caused by collagen vascular disease such as lupus. Other considerations would include infection with bacteria, virus or parasite. Crohn's disease is also possible. However, the long contiguous involvement without skip lesions would be atypical. Normal chest and upper abdomen Fidelia Hyman was called with the results Interpreted and Authenticated by: Wing Cantu 10/23/18
[2018-10-23 08:08] LABS: ALT/SGPT 13 U/l (0-40); AST/SGOT 15 U/l (0-37); Albumin 3.9 gm/dL (3.2-5.2); Albumin/Globulin Ratio 1.6 (1.0-2.3); Alkaline Phosphatase 89 U/L (39-117); Bilirubin,Direct < 0.2 mg/dL (0.0-0.3); Bilirubin,Total 0.6 mg/dL (0.0-1.0); Blood Urea Nitrogen 13 mg/dl (6-20); Calcium 8.6 mg/dl (8.6-10.4); Carbon Dioxide 20 mmol/L (22-30); Chloride 98 mmol/L (96-108); Globulin 2.5 gm/dL (2.2-3.7); Glomerular Filtration Rate 104; Glucose 111 mg/dL (70-105); Lactate Dehydrogenase 252 U/L (94-250); Phosphorous 2.9 mg/dL (2.7-4.5); Triglycerides 76 mg/dl (<150); Uric Acid 1.4 mg/dL (2.5-8.0)
[2018-10-23] MEDS ORDERED: POTASSIUM CHLORIDE 20 MEQ in DEXTROSE 5% IN WATER 250 ML IV ONE (08:13)
[2018-10-23] MEDS ORDERED: POTASSIUM CHLORIDE 20 MEQ TABLET PO ONE (08:13)
[2018-10-23] MEDS: cloNIDine HCL 0.1 MG TABLET PO PRN (08:32)
[2018-10-23] MEDS: amLODIPine 5 MG TABLET PO SCH (08:32)
[2018-10-23] MEDS: GABAPENTIN 100 MG CAPSULE PO SCH ×3 (08:32→20:24)
[2018-10-23] MEDS: CEFEPIME 2 GM VIAL IV SCH ×2 (10:54→20:23)
[2018-10-23] MEDS: metroNIDAZOLE 500 MG/100 ML BAG IV SCH ×2 (10:55→21:27)
[2018-10-23] MEDS: FAMOTIDINE/PF 20 MG/2 ML VIAL IV SCH ×2 (10:55→20:23)
[2018-10-23 11:45] LABS: Band Neutrophils % 5 % (0-10); Lymphocytes % 13 % (15-49); Macrocytosis 1+ (NONE SEEN); Monocytes % (Manual) 5 % (1-12); Platelet Estimate NORMAL (NORMAL); RBC Morphology ABNORM (NORMAL); Segmented Neutrophils % 77 % (38-78)
[2018-10-23] MEDS: HYDROcodone/APAP 10/325MG TABLET PO PRN (13:01)
[2018-10-24] MEDS: metroNIDAZOLE 500 MG/100 ML BAG IV SCH ×3 (05:11→21:15)
[2018-10-24] MEDS: 0.9 % SODIUM CHLORIDE 10 ML SYRINGE IV SCH ×3 (05:12→21:31)
[2018-10-24 05:43] LABS: Basophils # (Auto) 0 K/mcL (0.0-0.3); Basophils % (Auto) 0.1 % (0.0-2.0); Eosinophils # (Auto) 0 K/mcL (0.0-0.7); Eosinophils % (Auto) 0 % (0.0-7.0); Hematocrit 42.3 % (36.0-48.0); Hemoglobin 13.7 g/dL (12.0-15.0); Lymphocytes # (Auto) 1.7 K/mcL (1.5-4.8); Lymphocytes % (Auto) 16.3 % (15.5-49.0); Mean Cell Volume 100.9 fL (80.0-100.0); Mean Corpuscular HGB Conc 32.5 g/dL (31.0-36.0); Mean Platelet Volume 8.2 fL (7.4-10.4); Monocytes # (Auto) 0.7 K/mcL (0.1-0.9); Monocytes % (Auto) 6.6 % (1.0-12.0); Platelet Count 306 K/mcL (140-440); RBC 4.19 M/mcL (4.00-5.20); Red Cell Distribution Width 12.3 % (11.5-14.5); WBC 10.2 K/mcL (4.5-11.0)
[2018-10-24 06:37] LABS: ALT/SGPT 13 U/l (0-40); AST/SGOT 15 U/l (0-37); Albumin 3.9 gm/dL (3.2-5.2); Albumin/Globulin Ratio 1.7 (1.0-2.3); Alkaline Phosphatase 83 U/L (39-117); Bilirubin,Direct < 0.2 mg/dL (0.0-0.3); Bilirubin,Total 0.6 mg/dL (0.0-1.0); Blood Urea Nitrogen 13 mg/dl (6-20); Calcium 8.6 mg/dl (8.6-10.4); Carbon Dioxide 23 mmol/L (22-30); Chloride 99 mmol/L (96-108); Globulin 2.3 gm/dL (2.2-3.7); Glomerular Filtration Rate 104; Glucose 112 mg/dL (70-105); Lactate Dehydrogenase 225 U/L (94-250); Phosphorous 2.1 mg/dL (2.7-4.5); Triglycerides 58 mg/dl (<150); Uric Acid 1.6 mg/dL (2.5-8.0)
[2018-10-24] MEDS: HYDROcodone/APAP 10/325MG TABLET PO PRN (06:55)
[2018-10-24] MEDS: cloNIDine HCL 0.1 MG TABLET PO PRN ×2 (07:00→21:14)
[2018-10-24] MEDS ORDERED: POTASSIUM CHLORIDE 40 MEQ in DEXTROSE 5% IN WATER 500 ML IV ONE (07:40)
--- NOTE | 2018-10-24 07:44 | Internal Med Progress Note ---
Medical - PN: Subj Patient information: Note initiated : 10/24/18 at 7:37 am Service Date, if different from initiated Date: [] Patient: Karina Duarte a 53 y/o F admitted on 10/22/18 for N/V, Altered Mental Status. Chief Complaint: [] Interval history: Ms. Duarte is a 53 year old F presents with abdominal pain right upper quadrant dull pain nonradiating. She had developed nausea vomiting this morning of oral range and green emesis. She had diarrhea today per staff in ED had a greenish hue to it. Patient had no bowel months the previous 2 days and prior to that she did have diarrhea as well. Patient also with some confusion per family. She recently went on a camping trip to [place] go back a week ago and a few days ago she was [place] episode. In the ED she was seen and evaluated had a leukocytosis and hemoconcentration. She appeared volume depleted. Lactate was elevated 2.9. C. difficile study was negative. Because of her altered state she had CTA head and neck which were unremarkable. CT chest of pelvis looking for source of infection. Which showed lots of liquid stool and concern for infection. No neck pain. She is able answers some questions well and other questions she would laugh and not be able to answer. Speaking with family she said episodes in the past probably 3 to 4-year where she becomes quite altered. Her sister says she will work herself up and exerts herself and concerned that her medications are compounding issue. During these episodes patient will be altered for several days, very sleepy lethargic week and very confused -much worse than she is at this time. After couple days of rest she will come out it and be fine. She has had no fevers. No chest pain coughing shortness of breath, no coryza. Also of note, her did have diarrhea a few days ago as well. 2 L NS given in the ED. 10/23 No overnight events other than a watery/greenish stool last night x1. Overall feeling better. No nausea vomiting. No fever chills. 10/24 Feeling better. Had a couple loose bowel movements overnight. No new complaints. Stool studies negative thus far but still awaiting final culture. Potassium low. Review of Systems: denies headache/fever/chills/nausea/vomiting/chest or abdominal pain/cough/dyspnea. Otherwise see above. - Constitutional Vitals: Vital Signs Temp Pulse Resp BP Pulse Ox 99 F 76 16 151/83 97 10/24/18 06:46 10/24/18 03:57 10/24/18 06:46 10/24/18 06:46 10/24/18 06:46 Period Temp Pulse Resp BP Sys/Arias Pulse Ox Last 24 Hr 99 F-99.8 F 68-76 16- 143-161/81-88 97-99 Intake and Output 10/23/18 10/24/18 10/24/18 21:59 05:59 13:59 Intake Total 800 900 100 Output Total 450 1000 Balance 350 -100 100 Weight 48.308 kg Intake & Output: Intake & Output 10/23/18 10/24/18 10/24/18 21:59 05:59 13:59 Intake Total 800 900 100 Output Total 450 1000 Balance 350 -100 100 Weight 48.308 kg Intake: IV 100 100 Oral 800 800 Output: Void Amount 100 300 Stool 350 700 Other: Urine Appearance Clear Clear Urine Color Bright Yellow Dark Yellow Stool Size Small Stool Color Green Green Stool Consistency Liquid Liquid # Bowel Movements 1 1 Exam: General: Alert, Awake, No acute Distress Eyes/N/T: EOMI, PEERL, Head/Neck: neck supple - no nuchal rigidity, normocephalic atraumatic CV: RRR, No murmurs, Pulm: Clear b/l, no wheezing/rhonchi/rales Abd: soft, nontender, +BS x4 Ext: no clubbing/cyanosis/edema Neuro: A&Ox4, moves all extremities, follows commands, no focal deficits Skin: warm/dry Medical - PN: Obj Da - Labs CBC & Chem 7: 10/24/18 04:25 10/24/18 04:25 Labs: Abnormal Lab Results 10/24/18 10/24/18 10/23/18 04:25 04:25 04:08 WBC Hgb Hct POC Hct MCV 100.9 H Gran % Lymph % (Auto) Gran # Lymph # (Auto) Lymphocytes % RBC Morphology Macrocytosis VBG Lactic Acid Potassium 2.5 L* 2.8 L* Carbon Dioxide 20 L Anion Gap POC BUN BUN Glucose 112 H 111 H POC Glucose Uric Acid 1.6 L 1.4 L POC WB Ioniz Calcium Phosphorus 2.1 L Alkaline Phosphatase Lactate Dehydrogenase 252 H Urine Occult Blood Urine RBC U Marijuana (THC) Screen 10/23/18 10/22/18 10/22/18 04:08 21:50 15:20 WBC 11.3 H Hgb Hct POC Hct MCV 102.1 H Gran % Lymph % (Auto) Gran # Lymph # (Auto) Lymphocytes % 13 L RBC Morphology Abnorm A Macrocytosis 1+ A VBG Lactic Acid 2.7 H Potassium Carbon Dioxide Anion Gap POC BUN BUN Glucose POC Glucose Uric Acid POC WB Ioniz Calcium Phosphorus Alkaline Phosphatase Lactate Dehydrogenase Urine Occult Blood 0.2 A Urine RBC 9 H U Marijuana (THC) Screen 10/22/18 10/22/18 10/22/18 15:20 14:50 13:33 WBC Hgb Hct POC Hct 50.0 H MCV Gran % Lymph % (Auto) Gran # Lymph # (Auto) Lymphocytes % RBC Morphology Macrocytosis VBG Lactic Acid 2.9 H Potassium Carbon Dioxide Anion Gap 17.0 H POC BUN 27 H BUN 25 H Glucose 150 H POC Glucose 152 H Uric Acid POC WB Ioniz Calcium 1.13 L Phosphorus Alkaline Phosphatase 119 H Lactate Dehydrogenase Urine Occult Blood Urine RBC U Marijuana (THC) Screen Suspect positive A 10/22/18 13:33 WBC 16.0 H Hgb 15.6 H Hct 48.1 H POC Hct MCV 101.1 H Gran % 91.9 H Lymph % (Auto) 5.2 L Gran # 14.7 H Lymph # (Auto) 0.8 L Lymphocytes % RBC Morphology Macrocytosis VBG Lactic Acid Potassium Carbon Dioxide Anion Gap POC BUN BUN Glucose POC Glucose Uric Acid POC WB Ioniz Calcium Phosphorus Alkaline Phosphatase Lactate Dehydrogenase Urine Occult Blood Urine RBC U Marijuana (THC) Screen Meds: Medications Acetaminophen (Tylenol) 650 mg PO Q6HP PRN PRN Reason: PAIN/FEVER > 101 Last Admin: 10/22/18 23:25 Dose: 650 mg Documented by: Hydrocodone Bitart/Acetaminophen ([place] 10/325mg) 1 tab PO PRN PRN PRN Reason: Pain Last Admin: 10/24/18 06:55 Dose: 1 tab Documented by: Albuterol Sulfate (Ventolin) 1 puff INH Q4HP PRN PRN Reason: Shortness Of Breath Or Wheezing Alprazolam (Xanax) 0.5 mg PO DAILYP PRN PRN Reason: Anxiety Amlodipine Besylate (Norvasc) 5 mg PO DAILY [facility] Last Admin: 10/23/18 08:32 Dose: 5 mg Documented by: Carisoprodol (Soma) 350 mg PO TIDP PRN PRN Reason: Pain Cefepime HCl (Maxipime) 2 gm IV Q12H [facility]; Protocol Last Admin: 10/23/18 20:23 Dose: 2 gm Documented by: Clonidine HCl (Catapres) 0.1 mg PO Q6HP PRN PRN Reason: Hypertension SBP>150 Last Admin: 10/24/18 07:00 Dose: 0.1 mg Documented by: Famotidine (Pepcid) 20 mg IV Q12 [facility] Last Admin: 10/23/18 20:23 Dose: 20 mg Documented by: Gabapentin (Neurontin) 200 mg PO TID [facility] Last Admin: 10/23/18 20:24 Dose: 200 mg Documented by: Hydralazine HCl (Apresoline) 0 mg IV Q2HP PRN PRN Reason: Hypertension Last Admin: 10/23/18 12:05 Dose: 10 mg Documented by: Metronidazole (Flagyl) 500 mg in 100 mls @ 100 mls/hr IV Q8H [facility]; Protocol Last Infusion: 10/24/18 06:53 Dose: Infused Documented by: Ondansetron HCl (Zofran) 4 mg IV Q6HP PRN PRN Reason: Nausea And Vomiting Promethazine HCl (Phenergan) 12.5 mg PO Q6HP PRN PRN Reason: Nausea And Vomiting Sodium Chloride (Saline Flush) 10 ml IV Q8 [facility] Last Admin: 10/24/18 05:12 Dose: 10 ml Documented by: Medical - PN: A/P - Time Spent With Patient Total time spent is greater than 50% in coordination of care (as documented) at patient's floor/unit and/or counseling patient: - Narrative A/P Narrative: A: *Gastroenteritis: water vs food source -c. diff neg, other stool studies neg, but still awaiting cx -CT abdomen pelvis with thickening of the wall of the distal small intestine, no noted atherosclerosis, suspect infection *Sepsis: 2/2 above, Resolved -now afebrile, leukocytosis resolved - *AMS: 2/2 above. resolved -CT head/neck remarkable -has a history of becoming altered at times, medications as a potential cause *Volume depletion: improved *Hypertensive urgency: Does not take blood pressure medications at home and does not check blood pressure -better controlled *Hypokalemia: *Chronic low back pain/fibromyalgia: On Soma/gabapentin/[place]/morphine sulfate *Neuropathy: *Tobacco abuse: *Macrocytosis: b12/folate ok P: -IVF finished -pending O&P/stool cx -cont cefepime/Flagyl for now -hold home morphine, reduced phylicia -prn BP med, started norvasc - -Smoking cessation counseling -ppx: [facility] Medical - PN: Qual - VTE Deep Vein Thrombosis/Pulmonary Embolism Present on Admission: No
[2018-10-24] MEDS ORDERED: SODIUM PHOSPHATE 15 MMOL in DEXTROSE 5% IN WATER 250 ML IV ONE (08:20)
[2018-10-24] MEDS: POTASSIUM CHLORIDE 20 MEQ TABLET PO SCH ×2 (09:02→17:04)
[2018-10-24] MEDS: amLODIPine 5 MG TABLET PO SCH (09:03)
[2018-10-24] MEDS: FAMOTIDINE/PF 20 MG/2 ML VIAL IV SCH ×2 (09:03→21:15)
[2018-10-24] MEDS: GABAPENTIN 100 MG CAPSULE PO SCH ×3 (09:03→21:14)
[2018-10-24] MEDS: CEFEPIME 2 GM VIAL IV SCH ×2 (09:07→21:15)
--- NOTE | 2018-10-24 09:53 | Discharge Summary ---
Medical - DS: Prov Patient information: Note initiated : 10/24/18 at 9:50 am Service Date, if different from initiated Date: [] Patient: Karina Duarte 53 y/o F admitted on 10/22/18 for N/V, Altered Mental Status. Chief Complaint: [] Date of admission: 10/22/18 21:35 Discharge date: 10/25/18 Primary care physician: Wing Davis Consults: 10/22/18 Consult to Physician [CONS] Stat Comment: Consulting Provider: Luke Crespo Reason For Exam: Physician to Consult Medical - DS: Meds - Discharge Medications Prescriptions: amLODIPine [Norvasc] 2.5 mg PO DAILY #30 tab Ciprofloxacin [Cipro] 500 mg PO BID #6 tab Gabapentin [Neurontin] 200 mg PO TID #30 cap metroNIDAZOLE [Flagyl] 500 mg PO TID #9 tab Active and Home Medications: Home Medications Carisoprodol [Soma] 350 mg PO TIDP PRN 12/01/15 [History Confirmed 10/22/18 Last Taken Unknown] Gabapentin [Neurontin] 800 mg PO TID 12/01/15 [History Confirmed 10/22/18 Last Taken Unknown] morphine [Ms Contin] 60 mg PO BID 12/01/15 [History Confirmed 10/22/18 Last Taken Unknown] ALPRAZolam [Xanax] 0.5 mg PO DAILYP PRN 01/21/18 [History Confirmed 10/22/18 Last Taken Unknown] Albuterol Sulfate [Ventolin] 1 puff INH Q4HP PRN #1 inhaler 01/24/18 [Rx Confirmed 10/22/18 Last Taken Unknown] predniSONE [Prednisone] 40 mg PO QAMCC #10 tab 01/24/18 [Rx Confirmed 10/22/18 Last Taken Unknown] HYDROcodone/ACETAMINOPHEN [[place] 10-325 Tablet] 1 tab PO PRN PRN 10/22/18 [History Confirmed 10/22/18 Last Taken Unknown] Home Medications Carisoprodol [Soma] 350 mg PO TIDP PRN 12/01/15 [History Confirmed 10/22/18 Last Taken Unknown] ALPRAZolam [Xanax] 0.5 mg PO DAILYP PRN 01/21/18 [History Confirmed 10/22/18 Last Taken Unknown] Albuterol Sulfate [Ventolin] 1 puff INH Q4HP PRN #1 inhaler 01/24/18 [Rx Confirmed 10/22/18 Last Taken Unknown] HYDROcodone/ACETAMINOPHEN [[place] 10-325 Tablet] 1 tab PO PRN PRN 10/22/18 [History Confirmed 10/22/18 Last Taken Unknown] Ciprofloxacin [Cipro] 500 mg PO BID #6 tab 10/25/18 [Rx Last Taken Unknown] Gabapentin [Neurontin] 200 mg PO TID #30 cap 10/25/18 [Rx Last Taken Unknown] amLODIPine [Norvasc] 2.5 mg PO DAILY #30 tab 10/25/18 [Rx Last Taken Unknown] metroNIDAZOLE [Flagyl] 500 mg PO TID #9 tab 10/25/18 [Rx Last Taken Unknown] Medical - DS: Hosp Hospital course: Mr. Duarte is a 53 year old F Ms. Duarte is a 53 year old F presents with abdominal pain right upper quadrant dull pain nonradiating. She had developed nausea vomiting this morning of oral range and green emesis. She had diarrhea today per staff in ED had a greenish hue to it. Patient had no bowel months the previous 2 days and prior to that she did have diarrhea as well. Patient also with some confusion per family. She recently went on a camping trip to [place] go back a week ago and a few days ago she was kayaking on [address] [place] [facility]. In the ED she was seen and evaluated had a leukocytosis and hemoconcentration. She appeared volume depleted. Lactate was elevated 2.9. C. difficile study was negative. Because of her altered state she had CTA head and neck which were unremarkable. CT chest of pelvis looking for source of infection. Which showed lots of liquid stool and concern for infection. No neck pain. She is able answers some questions well and other questions she would laugh and not be able to answer. Speaking with family she said episodes in the past probably 3 to 4-year where she becomes quite altered. Her sister says she will work herself up and exerts herself and concerned that her medications are compounding issue. During these episodes patient will be altered for several days, very sleepy lethargic week and very confused -much worse than she is at this time. After couple days of rest she will come out it and be fine. She has had no fevers. No chest pain coughing shortness of breath, no coryza. Also of note, her did have diarrhea a few days ago as well. 2 L NS given in the ED. 10/23 No overnight events other than a watery/greenish stool last night x1. Overall feeling better. No nausea vomiting. No fever chills. 10/24 Feeling better. Had a couple loose bowel movements overnight. No new complaints. Stool studies negative thus far but still awaiting final culture. Potassium low. 10/25 Overnight events. Patient doing well. Feeling much better. Diarrhea improved. Stable for discharge A: *Gastroenteritis: water vs food source -c. diff neg, other stool studies neg, but still awaiting cx -CT abdomen pelvis with thickening of the wall of the distal small intestine, no noted atherosclerosis, suspect infection *Sepsis: 2/2 above, Resolved -now afebrile, leukocytosis resolved - *AMS: 2/2 above in combination of likely narcotics/phylicia. resolved -CT head/neck remarkable -has a history of becoming altered at times, medications as a potential cause *Volume depletion: improved *Hypertensive urgency: Does not take blood pressure medications at home and does not check blood pressure -better controlled *Hypokalemia: *Chronic low back pain/fibromyalgia: On Soma/gabapentin/[place]/morphine sulfate *Neuropathy: *Tobacco abuse: *Macrocytosis: b12/folate ok P: -pending O&P/stool cx -cefepime/Flagyl to cipro/flagyl -hold home morphine, reduced phylicia -prn BP med, started norvasc - -Smoking cessation counseling -ppx: SCD Discharge diagnosis: Gastroenteritis sepsis altered mental status volume depletion Secondary discharge diagnosis: Hypertensive urgency hypokalemia chronic low back pain neuropathy tobacco abuse macrocytosis - Time Spent with Patient Total time spent providing and/or coordinating discharge services: Greater than 30 minutes Medical - DS: Exam - Constitutional Vitals: Vital Signs Temp Pulse Resp BP Pulse Ox 10/24/18 06:46 99 F 16 151/83 97 10/24/18 03:57 99.8 F H 76 16 149/84 98 10/23/18 23:33 99.8 F H 68 16 143/81 98 10/23/18 19:45 99.3 F H 72 16 161/88 98 10/23/18 15:43 99.2 F H 16 143/85 99 10/23/18 15:35 99.1 F H 10/23/18 11:57 99.8 F H 26 H 154/82 98 Intake and Output 10/23/18 10/24/18 10/24/18 21:59 05:59 13:59 Intake Total 800 900 100 Output Total 450 1000 650 Balance 350 -100 -550 Intake: IV 100 100 Oral 800 800 Output: Void Amount 100 300 300 Urine/Stool Mix 350 Stool 350 700 Other: Urine Appearance Clear Clear Urine Color Bright Yellow Dark Yellow Stool Size Small Moderate Stool Color Green Green Green Stool Consistency Liquid Liquid Liquid # Bowel Movements 1 1 1 # of times incontinent of 0 Bowels Weight 48.308 kg Medical - DS: Data Labs on day of discharge: Labs from last 24 hours 10/24/18 10/24/18 10/23/18 04:25 04:25 04:08 WBC 10.2 RBC 4.19 Hgb 13.7 Hct 42.3 MCV 100.9 H MCH 32.8 MCHC 32.5 RDW 12.3 Plt Count 306 MPV 8.2 Gran % 77.0 Lymph % (Auto) 16.3 [place] % (Auto) 6.6 Eos % (Auto) 0 Baso % (Auto) 0.1 Gran # 7.9 Lymph # (Auto) 1.7 [place] # (Auto) 0.7 Eos # (Auto) 0 Baso # (Auto) 0 Total Counted 100 Seg Neutrophils % 77 Band Neutrophils % 5 Lymphocytes % 13 L Monocytes % (Manual) 5 Platelet Estimate Normal RBC Morphology Abnorm A Macrocytosis 1+ A Sodium 137 Potassium 2.5 L* Chloride 99 Carbon Dioxide 23 Anion Gap 15.0 BUN 13 Creatinine 0.6 GFR Calculation 104 Glucose 112 H Uric Acid 1.6 L Calcium 8.6 Phosphorus 2.1 L Magnesium 1.8 Total Bilirubin 0.6 Direct Bilirubin < 0.2 GGT 21 AST 15 ALT 13 Alkaline Phosphatase 83 Lactate Dehydrogenase 225 Total Protein 6.2 Albumin 3.9 Globulin 2.3 Albumin/Globulin Ratio 1.7 Triglycerides 58 Preliminary micro results at discharge 10/22/18 20:25 Blood Culture - Preliminary Blood 10/22/18 20:15 Blood Culture - Preliminary Blood Medical - DS: A/P - Patient/Caregiver Discharge Instructions Activity: increase activity as tolerated Diet: Regular Diet Prescriptions: Gabapentin [Neurontin] 300 mg PO TID #90 cap - Follow up Plan Follow up with: Wing Davis MD [Primary Care Provider] - Disposition: Home, Self-Care Prognosis: Fair Rehab Potential: Fair Overall status at discharge: patient is progressing back to baseline Medical - DS: Qual - VTE Deep Vein Thrombosis/Pulmonary Embolism Present on Admission: No
[2018-10-24] MEDS: LOPERAMIDE 2 MG CAPSULE PO PRN ×2 (17:04→21:14)
[2018-10-24] MEDS: ACETAMINOPHEN 325 MG TABLET PO PRN (21:14)
[2018-10-25] MEDS: metroNIDAZOLE 500 MG/100 ML BAG IV SCH (05:29)
[2018-10-25] MEDS: 0.9 % SODIUM CHLORIDE 10 ML SYRINGE IV SCH (05:30)
[2018-10-25] MEDS: LOPERAMIDE 2 MG CAPSULE PO PRN (06:54)
[2018-10-25 08:07] LABS: ALT/SGPT 36 U/l (0-40); AST/SGOT 30 U/l (0-37); Albumin 3.5 gm/dL (3.2-5.2); Albumin/Globulin Ratio 1.8 (1.0-2.3); Alkaline Phosphatase 73 U/L (39-117); Bilirubin,Direct < 0.2 mg/dL (0.0-0.3); Bilirubin,Total 0.6 mg/dL (0.0-1.0); Blood Urea Nitrogen 13 mg/dl (6-20); Calcium 8.6 mg/dl (8.6-10.4); Carbon Dioxide 23 mmol/L (22-30); Chloride 103 mmol/L (96-108); Globulin 1.9 gm/dL (2.2-3.7); Glomerular Filtration Rate 99; Glucose 87 mg/dL (70-105); Lactate Dehydrogenase 241 U/L (94-250); Phosphorous 3.2 mg/dL (2.7-4.5); Triglycerides 60 mg/dl (<150); Uric Acid 2.1 mg/dL (2.5-8.0)
[2018-10-25] MEDS: FAMOTIDINE/PF 20 MG/2 ML VIAL IV SCH (08:23)
[2018-10-25] MEDS: GABAPENTIN 100 MG CAPSULE PO SCH (08:23)
[2018-10-25] MEDS: amLODIPine 5 MG TABLET PO SCH (08:23)
[2018-10-25] MEDS: CEFEPIME 2 GM VIAL IV SCH (08:23)
[2018-10-25] MEDS: POTASSIUM CHLORIDE 20 MEQ TABLET PO SCH (08:23)
== END 2018-10-25 10:24 | disposition home or self-care (01) | DRG 872 ==
LOC: ED 13:03 → MEDSUR 21:35
PROVIDERS: ADMIT Internal Medicine; ATTEND Internal Medicine